=== PATIENT | male | born 2000 | race Caucasian/White ===

== ENCOUNTER 2023-10-29 14:26 | Emergency (ER) | payer MEDICAID, SELFPAY ==
[2023-10-29 14:26] VITALS: BP 136/69; PULSE 65; RESP 17; TEMP 35.9; O2SAT 99; BMI 26.6
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
[2023-10-29] MEDS: Ibuprofen 200 MG Tablet 400 MG PO (15:58)
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
[2023-10-29 16:26] VITALS: BP 112/64; PULSE 85; RESP 12; O2SAT 99
[2023-10-29 18:00] VITALS: BP 109/61; PULSE 70; RESP 16; O2SAT 98
--- NOTE | 2023-10-29 19:16 | ED.RN ---
1915: The patient is requesting to leave AMA after prolonged imaging read times experienced during the internal code yellow. A form was printed and provided to the provider. I was instructed he would be in to speak with the patient when he gets a chance. 191: The patient was notified of the provider response.
[2023-10-29 19:37] VITALS: BP 115/60; PULSE 74; RESP 16; TEMP 37; O2SAT 97
== END 2023-10-29 19:37 | disposition home or self-care (01) ==
PROVIDERS: Emergency Provider Student in an Organized Health Care Education/Training Program; Visit Provider Student in an Organized Health Care Education/Training Program
DX: S16.1XXA Strain of muscle, fascia and tendon at neck level, initial encounter (principal); Z87.891 Personal history of nicotine dependence; R51.9 Headache, unspecified; Z53.29 Procedure and treatment not carried out because of patient's decision for other reasons; V47.5XXA Car driver injured in collision with fixed or stationary object in traffic accident, initial encounter
CPT/HCPCS: 70450; 71046; 72125; 99283